=== PATIENT | male | born 1995 | race Caucasian/White ===

== ENCOUNTER 2016-07-05 18:49 | Emergency (ER) | payer SELFPAY ==
[~2016-07-05] VITALS: Ht 177.8 cm; Wt 72.7 kg
[~2016-07-05 18:49] MED LIST: IBUP-2067 PO; NO ROUTINE MEDS
--- OUTSIDE RECORDS SUMMARY | 2016-07-05 18:53 | XMS REPORT | Continuity of Care Document ---
Author Author [facility] Organization [facility] Address Unknown Phone Unavailable Support Name Relationship Address Phone JESIKA THEODORE MD Caregiver [address] [place] [address] Unavailable SAGRARIO CARO MD Caregiver [address] [address] Unavailable OSORIO WILSON Next Of Kin [address] [place] [address] Insurance Providers Guarantor Herbert Wilson Address [address] [place] [address] Email [email or web address] Payer Self Pay Subscriber's Name Herbert Wilson Relationship 18 Self Chief Complaint and Reason for Visit Chief Complaint Lower Extremity Injury Reason for Visit Acute ankle pain Problems Active Problems Medical Problem Onset Date Status Gastroenteritis Unknown Acute Norovirus Unknown Acute Puncture wound of left foot Unknown Acute left ankle sprain Unknown Acute right hand contusion Unknown Acute Past Problems Medical Problem Onset Date Acute ankle pain Unknown Congenital malrotation of intestine Unknown Gastroenteritis Unknown Nausea and vomiting Unknown Medications Current Home Medications Medication Dose Units Route Directions Days Qty Instructions Start Date Ibuprofen 600 Mg Tablet 1 Tab Oral Every 6-8 Hours Prn as needed for Pain 30 Tablet 10/14/15 No Routine Meds 10/14/15 Past Home Medications Medication Directions Ordered Status Hydrocodone Bit/Acetaminophen (Lortab Elixir) 480 Ml Solution, 480 Ml Oral as needed 08/06/12 Discontinued No Medications , 02/27/13 Discontinued None , 12/02/08 Discontinued Social History Social History Problem Response Recorded Date/Time Onset Date Status Chewing Tobacco Status No 03/15/2013 6:43pm Not Applicable Not Applicable Hx Substance Use No 10/14/2015 8:07pm Not Applicable Not Applicable Hx Alcohol Use No 10/14/2015 8:07pm Not Applicable Not Applicable Has the pt used tobacco in the last 12 months Yes 08/02/2012 7:03am Not Applicable Not Applicable Tobacco Usage none 12/15/2014 11:00am Not Applicable Not Applicable Query Response Start Date Stop Date Smoking Status Current every day smoker Hospital Discharge Instructions No hospital discharge instructions. Plan of Care Discharge Date 10/14/15 9:45pm Disposition 01 DISCHARGED HOME, SELF-CARE Condition at Discharge Stable Instructions/Education Provided Ankle Sprain How To Perform RICE (Rest, Ice, Compress, Elevate) Prescriptions See Medication Section Referrals SAGRARIO CARO MD Address: [address] [place] [address] DR [place], [place] [phone] Additional Instructions/Education Home to rest - No weight bearing till rechecked by PCP. Please follow up in 3-5 days for recheck to make sure no occult fracture. Please return to ER if worsening pain where toes become cool - blue - have numbness/tingling to rt foot/leg. Medication as ordered. Recommend taking ibuprofen every 6-8 hours with food for the next 3 days to help with swelling, discomfort - then as prescribed. Care Plan and Goals Physician Care Plan Problem: rt ankle pain acute Goal: Follow up with primary care provider Instructions: Take medications and follow care plan as discussed/written Functional Status No functional status results. Allergies, Adverse Reactions, Alerts Allergen Type Severity Reaction Status Last Updated No Known Drug Allergies Allergy Unknown Active 08/16/15 Immunizations Query Response on File Recorded Date/Time Hx Influenza Vaccination No 12/15/14 10:56am Hx Pneumococcal Vaccination No 12/15/14 10:56am Hx Tetanus, Diptheria, Pertussis Y 201212/15/14 10:56am Hx Influenza Vaccination No 12/15/14 10:56am Hx Tetanus, Diptheria, Pertussis Y 201212/15/14 10:56am Tdap Vaccine Hx UNKNOWN 10/14/15 8:07pm Vital Signs Acute Vital Signs Vital Response Date/Time Temperature (Fahrenheit) 98.2 deg F (96.8 - 99.1) 10/14/2015 8:07pm Temperature (Calculated Celsius) 36.88176 degrees C (36.0 - 37.3) 10/14/2015 8:07pm Pulse Rate (adult) 71 bpm (60 - 100) 10/14/2015 9:39pm Respiratory Rate 17 breaths/min (10 - 20) 10/14/2015 9:39pm O2 Sat by Pulse Oximetry 97 % (90 - 100) 10/14/2015 9:39pm Blood Pressure 110/66 mm Hg 10/14/2015 9:39pm Height (Feet) 5 feet 10/14/2015 8:07pm Height (Inches) 7.00 inches 10/14/2015 8:07pm Weight (Kilograms) 63.100 kg 10/14/2015 8:07pm Body Mass Index (BMI) 21.0 10/14/2015 8:07pm Results Laboratory Results Test Name Result Units Flags Reference Collection Date/Time Result Date/ Time Comments White Blood Count 8.1 T/MM3 4.5-11.0 08/19/2015 3:33pm 08/19/2015 3: 38pm Red Blood Count 5.39 M/MM3 4.50-5.90 08/19/2015 3:33pm 08/19/2015 3: 38pm Hemoglobin 17.1 GM/DL 13.5-17.5 08/19/2015 3:33pm 08/19/2015 3:38pm Hematocrit 50.2 % 41-53 08/19/2015 3:33pm 08/19/2015 3:38pm Mean Corpuscular Volume 93.1 UM3 80-100 08/19/2015 3:33pm 08/19/2015 3: 38pm Mean Corpuscular Hemoglobin 31.7 UUG 26-34 08/19/2015 3:33pm 2015 3:38pm Mean Corpuscular Hemoglobin Concent 34.1 GM/DL 31-37 08/19/2015 3:33pm 08/19/2015 3:38pm RDW Standard Deviation 43.5 FL 36.9-50.2 08/19/2015 3:33pm 08/19/2015 3 :38pm Platelet Count 235 T/MM3 130-400 08/19/2015 3:33pm 08/19/2015 3:38pm Mean Platelet Volume 9.6 UM3 9.4-12.4 08/19/2015 3:33pm 08/19/2015 3: 38pm Neutrophils (%) (Auto) 52.2 % 33-66 08/19/2015 3:33pm 08/19/2015 3: 38pm Lymphocytes (%) (Auto) 35.7 % 23-45 08/19/2015 3:33pm 08/19/2015 3: 38pm Monocytes (%) (Auto) 5.8 % 0-9.0 08/19/2015 3:33pm 08/19/2015 3:38pm Eosinophils (%) (Auto) 5.8 % H 0-4 08/19/2015 3:33pm 08/19/2015 3:38pm Basophils (%) (Auto) 0.4 % 0-2 08/19/2015 3:33pm 08/19/2015 3:38pm Immature Granulocyte % (Auto) 0.1 % 0.0-0.5 08/19/2015 3:33pm 2015 3:38pm Absolute Neutrophils (auto) 4.3 T/MM3 1.8-7.7 08/19/2015 3:33pm 2015 3:38pm Absolute Lymphocytes (auto) 2.9 T/MM3 1-4.8 08/19/2015 3:33pm 2015 3:38pm Absolute Monocytes (auto) 0.5 T/MM3 0-0.8 08/19/2015 3:33pm 08/19/2015 3:38pm Absolute Eosinophils (auto) 0.5 T/MM3 0-0.5 08/19/2015 3:33pm 2015 3:38pm Absolute Basophils (auto) 0.0 T/MM3 0-0.2 08/19/2015 3:33pm 08/19/2015 3:38pm Absolute Immature Granulocyte (auto 0.01 T/MM3 0.00-0.03 08/19/2015 3: 33pm 08/19/2015 3:38pm Icterus Index < 2 0-7 08/19/2015 3:33pm 08/19/2015 3:48pm Chemistry Specimen Hemolysis < 15 0-25 08/19/2015 3:33pm 08/19/2015 3 :48pm 0-25: Specimen Exhibited No Hemolysis. Turbidity < 20 0-20 08/19/2015 3:33pm 08/19/2015 3:48pm Sodium Level 140 MEQ/L 134-144 08/19/2015 3:33pm 08/19/2015 3:48pm Potassium Level 4.1 MEQ/L 3.6-5 08/19/2015 3:33pm 08/19/2015 3:48pm Chloride Level 106 MEQ/L 98-107 08/19/2015 3:33pm 08/19/2015 3:48pm Carbon Dioxide Level 25 MEQ/L 22-30 08/19/2015 3:33pm 08/19/2015 3: 48pm Anion Gap 9 MEQ/L 5-15 08/19/2015 3:33pm 08/19/2015 3:48pm Blood Urea Nitrogen 8.0 MG/DL L 9-20 08/19/2015 3:33pm 08/19/2015 3: 48pm Creatinine 0.8 MG/DL 0.8-1.5 08/19/2015 3:33pm 08/19/2015 3:48pm BUN/Creatinine Ratio 10 RATIO 6-26 08/19/2015 3:3308/19/2015 3:48pm Glomerular Filtration Rate Calc 126 08/19/2015 3:33pm 08/19/2015 3: 48pm Glucose Level 90 MG/DL 75-110 08/19/2015 3:33pm 08/19/2015 3:48pm Calculated Osmolality 267 MOSM/KG 261-280 08/19/2015 3:08/19/2015 3:48pm Calcium Level 9.6 MG/DL 8.4-10.2 08/19/2015 3:3308/19/2015 3:48pm Total Bilirubin 0.40 MG/DL 0.20-1.30 08/19/2015 3:3308/19/2015 3: 48pm Alkaline Phosphatase 67 U/L L 70-260 08/19/2015 3:33pm 08/19/2015 3: 48pm Total Protein 7.0 G/DL 6.3-8.2 08/19/2015 3:33pm 08/19/2015 3:48pm Albumin 4.4 G/DL 3.5-5.0 08/19/2015 3:08/19/2015 3:48pm Globulin 2.6 G/DL 2.4-3.6 08/19/2015 3:08/19/2015 3:48pm Albumin/Globulin Ratio 1.7 RATIO 1.1-2.2 08/19/2015 3:pm 08/19/2015 3 :48pm Aspartate Amino Transf (AST/SGOT) 15 U/L L 17-59 08/19/2015 3:pm 08/18 3:48pm Alanine Aminotransferase (ALT/SGPT) 10 U/L L 21-72 08/19/2015 3:33pm 3:48pm C-Reactive Protein < 5.0 MG/L 0-9 08/19/2015 3:33pm 08/19/2015 3:48pm Lipase 24 U/L 23-300 08/19/2015 3:33pm 08/19/2015 3:48pm Urine Collection Type VOIDED-NOT CC-MIDSTR 08/19/2015 4:16pm 2015 4:22pm Urine Color YELLOW YELLOW 08/19/2015 4:16pm 08/19/2015 4:22pm Urine Turbidity CLEAR CLEAR 08/19/2015 4:16pm 08/19/2015 4:22pm Urine Specific [place] 1.020 1.015-1.025 08/19/2015 4:16pm 2015 4:22pm Urine pH 8.5 H 5.0-8.0 08/19/2015 4:16pm 08/19/2015 4:22pm Urine Leukocyte Esterase NEGATIVE NEGATIVE 08/19/2015 4:16pm 2015 4:22pm Urine Nitrite NEGATIVE NEGATIVE 08/19/2015 4:16pm 08/19/2015 4:22pm Urine Protein NEGATIVE NEGATIVE 08/19/2015 4:16pm 08/19/2015 4:22pm Urine Glucose (UA) NEGATIVE NEGATIVE 08/19/2015 4:16pm 08/19/2015 4: 22pm Urine Ketones NEGATIVE NEGATIVE 08/19/2015 4:16pm 08/19/2015 4:22pm Urine Urobilinogen 0.2 EU/DL NORMAL 08/19/2015 4:16pm 08/19/2015 4: 22pm Urine Bilirubin NEGATIVE NEGATIVE 08/19/2015 4:16pm 08/19/2015 4: 22pm Urine Blood NEGATIVE NEGATIVE 08/19/2015 4:16pm 08/19/2015 4:22pm Urinalysis Comment MICROSCOPIC NOT IND. 08/19/2015 4:16pm 2015 4:22pm Procedures Procedure Status Date Provider(s) HYDRATE IV INFUSION ADD-ON Completed 08/16/15 JOHN AWAN MD THER/PROPH/DIAG INJ IV PUSH Completed 08/16/15 JOHN AWAN MD TX/PRO/DX INJ NEW DRUG ADDON Completed 08/16/15 JOHN AWAN MD TX/PRO/DX INJ NEW DRUG ADDON Completed 08/16/15 JOHN AWAN MD TX/PRO/DX INJ NEW DRUG ADDON Completed 08/16/15 JOHN AWAN MD TX/PRO/DX INJ NEW DRUG ADDON Completed 08/16/15 JOHN AWAN MD THER/PROPH/DIAG INJ IV PUSH Completed 08/19/15 TX/PRO/DX INJ NEW DRUG ADDON Completed 08/19/15 TX/PRO/DX INJ NEW DRUG ADDON Completed 08/19/15 TX/PRO/DX INJ NEW DRUG ADDON Completed 08/19/15 TX/PRO/DX INJ SAME DRUG REFERRAL MANAGEMENT LIAISON Completed 08/19/15 Encounters Encounter Location Arrival/Admit Date Discharge/Depart Date Attending Provider Departed Emergency Room [facility] 10/14/15 7:46pm 10/14/15 9: 45pm JESIKA THEODORE MD Departed Emergency Room [facility] 08/19/15 2:49pm 08/19/15 5: 40pm MENDY GUTIERREZ MD Departed Emergency Room [facility] 08/16/15 7:02am 08/16/15 11: 52am JOHN AWAN MD Recent Diagnosis
--- OUTSIDE RECORDS SUMMARY | 2016-07-05 18:53 | XMS REPORT | Continuity of Care Document ---
Author Author [facility] Organization [facility] Address Unknown Phone Unavailable Allergies Active Description Code Type Severity Reaction Onset Reported/Identified Relationship to Patient Clinical Status Yes No Known Medication Allergies NKMA N/A N/A 01/30/2014 Medications Problems Date Dx Coded Attending Type Code Diagnosis Diagnosed By 04/07/2016 OMAR LYNCH [id number] Nicotine dependence, cigarettes, uncomplicated 04/07/2016 OMAR LYNCH H6692 Otitis media, unspecified, left ear 04/07/2016 OMAR LYNCH J029 Acute pharyngitis, unspecified 04/07/2016 OMAR LYNCH R05 Cough Procedures Results Encounters ACCT No. Visit Date/Time Discharge Status Pt. Type Provider Facility Loc./Unit Complaint [id number] 05/08/2013 18:13:00 05/08/2013 23 :59:59 CLS Outpatient
--- OUTSIDE RECORDS SUMMARY | 2016-07-05 18:53 | XMS REPORT | Referral Summary ---
Author Organization Unknown Address Unknown Phone Unavailable Care Team Providers Care Tempering Oven Operator Name Role Phone Hayley Jaramillo Primary Care Physician [phone] Encounter VC Date(s): 04/18/14 - 04/18/14 [facility], [address] [place] [address] Discharge Diagnosis: Acute bronchitis Discharge Disposition: Home or Self Care Attending Physician: Dago Garcia MD Admitting Physician: Dago Garcia MD Referring Physician: Lupillo Jaramillo MD Vital Signs Most recent to 1 oldest [Reference Range]: Temperature Tympanic 37.4 degC (04/18/14 7:31 PM) Peripheral Pulse 93 bpm Rate [55-90 bpm] *HI* (04/18/14 7:31 PM) Blood Pressure 114/80 mmHg [90-138/45-84 mmHg] (04/18/14 7:31 PM) Most recent to 1 oldest [Reference Range]: SpO2 99 % (04/18/14 7:31 PM) Problem List No Known Problems Allergies, Adverse Reactions, Alerts No Known Medication Allergies Medications Mucinex DM 1 tabs, Oral, q12hr, 0 Refill(s) Start Date: 01/30/14 Status: Ordered Zithromax Z-Ismael 250 mg oral tablet 1 packets, Oral, Daily, as directed on package labeling, X 5 days, # 6 tabs, 0 Refill(s), Pharmacy: [facility] [id number], 1 packets Oral Daily,x5 days, Instr:as directed on package labeling Special Instructions: as directed on package labeling Start Date: 04/18/14 Stop Date: 04/23/14 Status: Ordered Results No data available for this section Immunizations No data available for this section Procedures No data available for this section Social History Social History Type Response Smoking Status Current every day smoker; Tobacco use per day: Pack Assessment and Plan Extracted from: Title: Office Visit Note Author: Dago Garcia MD Date: 04/18/14 Assessment/Plan Acute bronchitis The overall history and exam is consistent with bronchitis. I would recommend netipot sinus 2 to 3 x a day if you are having trouble with nasal drainage. Mucinex is ok for the cough. If you are not improving by next week call us. If you are experiencing any concerning symptoms call or go to the ER. Orders: azithromycin, 1 packets, Oral, Daily, as directed on package labeling , X 5 days, # 6 tabs, 0 Refill(s), Pharmacy: [id number], 1 packets Oral Daily,x5 days,Instr:as directed on package labeling
--- OUTSIDE RECORDS SUMMARY | 2016-07-05 18:53 | XMS REPORT | Continuity of Care Document ---
Author Author Greg Harvey DO Ambulatory Address [address] [place] [address] [place] [address] Phone Payers Payer name Insurance type Covered alliance party ID Authorization(s) Unknown Problems Condition Effective Dates (start - stop) Clinical Status Noninfectious Gastroenteritis - *Acute Abdominal pain, periumbilic - *Acute Family History Family Member Diagnosis Age At Onset Status Unknown Social History Social History Element Description Quantity Unknown Allergies, Adverse Reactions, Alerts Substance Reaction Severity Status Unknown Medications Medication Instructions Dosage Effective Dates (start - stop) Status promethazine 25 mg tablet take 1 tablet (25MG) by oral route every 6 hours as needed 25 MG - Active Immunizations Vaccine Date Status Comments Unknown Results Test Name Date and Time Measure Units Reference Range Abnormal Flag Comments Unknown Vital Signs Date / Time: Height Weight Pulse Rate Blood Pressure Temperature /18:21:00 140.00 lbs 5 /min 104/66 mm[Hg] 98.3 F Procedures Procedure Date Unknown Encounters Encounter Location Date Patient Visit [facility] Care Patient Visit [facility] Care Advance Directives Directive Effective Date Unknown
--- OUTSIDE RECORDS SUMMARY | 2016-07-05 18:53 | XMS REPORT | Referral Summary ---
Author Organization Unknown Address Unknown Phone Unavailable Care Team Providers Care Catapult And Arresting Gear Officer Name Role Phone Hayley Jaramillo Primary Care Physician [phone] Encounter VC Date(s): 05/25/14 - 05/25/14 [facility]ellanos, [address] [place] [address] Discharge Diagnosis: Dehydration, mild Discharge Diagnosis: Vomiting Discharge Diagnosis: Influenza Discharge Diagnosis: Acute bronchitis Discharge Disposition: Home or Self Care Attending Physician: Phill Harmon MD Admitting Physician: Phill Harmon MD Referring Physician: Lupillo Jaramillo MD Vital Signs Most recent to 1 oldest [Reference Range]: Temperature Tympanic 37.7 degC (05/25/14 5:36 PM) Apical Heart Rate 114 bpm [55-90 bpm] *HI* (05/25/14 5:36 PM) Blood Pressure 118/72 mmHg [90-138/45-84 mmHg] (05/25/14 5:36 PM) Problem List Condition Effective Dates Status Health Status Informant Acute Active bronchitis(Confirmed ) Influenza(Confirmed) Active Dehydration, Active mild(Confirmed) Vomiting(Confirmed) Active Allergies, Adverse Reactions, Alerts No Known Medication Allergies Medications Mucinex DM 1 tabs, Oral, q12hr, 0 Refill(s) Start Date: 01/30/14 Status: Ordered predniSONE 20 mg oral tablet 1 tabs, Oral, Daily, X 5 days, # 5 tabs, 0 Refill(s), Pharmacy: [facility] [id number], 1 tabs Oral Daily,x5 days Start Date: 05/24/14 Stop Date: 05/29/14 Status: Ordered Tamiflu 75 mg oral capsule 1 caps, Oral, BID, X 5 days, # 10 caps, 0 Refill(s), Pharmacy: [facility] [id number], 1 caps Oral BID,x5 days Start Date: 05/25/14 Stop Date: 05/30/14 Status: Ordered Zithromax Z-Ismael 250 mg oral tablet 1 packets, Oral, Daily, as directed on package labeling, X 5 days, # 6 tabs, 0 Refill(s), Pharmacy: [facility] [id number], 1 packets Oral Daily,x5 days, Instr:as directed on package labeling Special Instructions: as directed on package labeling Start Date: 05/24/14 Stop Date: 05/29/14 Status: Ordered Zofran 4 mg oral tablet 1 tabs, Oral, q6hr, Nausea or Vomiting | as needed for nausea/vomiting, # 12 tabs, 0 Refill(s), Pharmacy: [facility] [id number], 1 tabs Oral q6hr,PRN: Nausea or Vomiting | as needed for nausea/vomiting Start Date: 05/25/14 Stop Date: 05/30/14 Status: Ordered Results No data available for this section Immunizations No data available for this section Procedures No data available for this section Social History Social History Type Response Smoking Status Current every day smoker; Tobacco use per day: Pack Assessment and Plan Extracted from: Title: Ambulatory Patient Education Author: Phill Harmon MD Date: 05/25 Family Medicine Influenza, Adult Influenza ("the flu") is a viral infection of the respiratory tract. It occurs more often in winter months because people spend more time in close contact with one another. Influenza can make you feel very sick. Influenza easily spreads from person to person (contagious ). CAUSES Influenza is caused by a virus that infects the respiratory tract. You can catch the virus by breathing in droplets from an infected person's cough or sneeze. You can also catch the virus by touching something that was recently contaminated with the virus and then touching your mouth, nose, or eyes. SYMPTOMS Symptoms typically last 4 to 10 days and may include: Fever. Chills. Headache, body aches, and muscle aches. Sore throat. Chest discomfort and cough. Poor appetite. Weakness or feeling tired. Dizziness. Nausea or vomiting. DIAGNOSIS Diagnosis of influenza is often made based on your history and a physical exam. A nose or throat swab test can be done to confirm the diagnosis. RISKS AND COMPLICATIONS You may be at risk for a more severe case of influenza if you smoke cigarettes, have diabetes, have chronic heart disease (such as heart failure) or lung disease (such as asthma), or if you have a weakened immune system. Elderly people and women are also at risk for more serious infections. The most common complication of influenza is a lung infection (pneumonia ). Sometimes, this complication can require emergency medical care and may be life- threatening. PREVENTION An annual influenza vaccination (flu shot) is the best way to avoid getting influenza. An annual flu shot is now routinely recommended for all adults in the [place] TREATMENT In mild cases, influenza goes away on its own. Treatment is directed at relieving symptoms. For more severe cases, your caregiver may prescribe antiviral medicines to shorten the sickness. Antibiotic medicines are not effective, because the infection is caused by a virus, not by bacteria. HOME CARE INSTRUCTIONS Only take [id number] or prescription medicines for pain, discomfort, or fever as directed by your caregiver. Use a cool mist humidifier to make breathing easier. Get plenty of rest until your temperature returns to normal. This usually takes 3 to 4 days. Drink enough fluids to keep your urine clear or pale yellow. Cover your mouth and nose when coughing or sneezing, and wash your hands well to avoid spreading the virus. Stay home from work or school until your fever has been gone for at least 1 full day. SEEK MEDICAL CARE IF: You have chest pain or a deep cough that worsens or produces more mucus. You have nausea, vomiting, or diarrhea. SEEK IMMEDIATE MEDICAL CARE IF: You have difficulty breathing, shortness of breath, or your skin or nails turn bluish. You have severe neck pain or stiffness. You have a severe headache, facial pain, or earache. You have a worsening or recurring fever. You have nausea or vomiting that cannot be controlled. MAKE SURE YOU: Understand these instructions. Will watch your condition. Will get help right away if you are not doing well or get worse. Document Released: 03/12/2001 Document Revised: 09/13/2012 Document Reviewed: [employer] Patient Information 2014 [employer]. No follow up information was provided. Extracted from: Title: bronchitis, vomiting Author: Phill Harmon MD Date: 05/25/14 Impression and Plan Diagnosis Vomiting (ICD9 787.03, Discharge, Medical). Influenza (ICD9 487.1, Discharge, Medical). Dehydration, mild (ICD9 276.51, Discharge, Medical). Acute bronchitis (ICD9 466.0, Discharge, Medical). Plan: Take the Tamiflu as directed. Use the Zofran as needed for vomiting. , You should fill the Azithromycin prescription and take that (from Dr. Jaramillo) as well. Rest at home. Followup as needed.. Orders Orders (Selected) Outpatient Orders Ordered Office Visit Level 4 Est 25421: Completed Influenza POC: Prescriptions Prescribed Tamiflu 75 mg oral capsule: 1 caps, Oral, BID, 10 caps Zofran 4 mg oral tablet: 1 tabs, Oral, q6hr, 12 tabs, PRN: Nausea or Vomiting | as needed for nausea/vomiting. Dx/Order Association Plan: Diagnosis: Acute bronchitis Comment: Ordered: Office Visit Level 4 Est 64583; 05/25/14 21:32:00 SUPPLEMENTAL MANAGER, Influenza | Dehydration, mild | Acute bronchitis | Vomiting Diagnosis: Dehydration, mild Comment: Ordered: Office Visit Level 4 Est 41003; 05/25/14 21:32:00 SUPPLEMENTAL MANAGER, Influenza | Dehydration, mild | Acute bronchitis | Vomiting Diagnosis: Influenza Comment: Ordered: Office Visit Level 4 Est 76707; 05/25/14 21:32:00 SUPPLEMENTAL MANAGER, Influenza | Dehydration, mild | Acute bronchitis | Vomiting Diagnosis: Vomiting Comment: Ordered: Office Visit Level 4 Est [id number]; 05/25/14 21:32:00 SUPPLEMENTAL MANAGER, Influenza | Dehydration, mild | Acute bronchitis | Vomiting Additional Orders: Comment: Ordered: Tamiflu 75 mg oral capsule,1 caps, Oral, BID, X 5 days, # 10 caps, 0 Refill(s), Pharmacy: [facility] [id number], 1 caps Oral BID,x5 days Ordered: Zofran 4 mg oral tablet,1 tabs, Oral, q6hr, Nausea or Vomiting | as needed for nausea/vomiting, # 12 tabs, 0 Refill(s), Pharmacy: [facility] [id number], 1 tabs Oral q6hr,PRN:Nausea or Vomiting | as needed for nausea/vomiting End of Orders .
--- OUTSIDE RECORDS SUMMARY | 2016-07-05 18:53 | XMS REPORT ---
Author Author GENERATED, SYSTEM Organization Unknown Address Unknown Phone Unavailable Care Team Providers Care Family Centered Specialist Name Role Phone PP Unavailable Reason For Visit Chief Complaint ACUTE PHARYNGITIS Social History Functional Status Vital Signs Results DX Radiology from 04/03/2016 1:38 PMCHEST 2 VIEWS History: cough, fever. Technique: 2 VIEW CHEST Priors: Findings: The heart size and pulmonary vasculature within normal limits. No consolidating infiltrates are identified. No significant pleural effusion or pneumothorax is seen. Impression: No acute abnormality. Electronically signed by: Liza Mendenhall MD Dictated: 04/03/2016 15:21 Problems Encounter Diagnosis No relevant problems exist. Encounters Encounter Diagnosis No relevant problems exist. Plan of Care Procedures No relevant procedures performed. Immunizations No immunizations administered or ordered. Hospital Course Hospital Discharge Instructions Allergies, Adverse Reactions, Alerts * Latex Allergy has not been assessed. * IV Contrast Allergy has not been assessed. Medication Medication reconciliation has not been performed.
--- OUTSIDE RECORDS SUMMARY | 2016-07-05 18:53 | XMS REPORT | Referral Summary ---
Author Author [facility], [facility] Care Organization [facility] Address Unknown Phone Unavailable Care Team Providers Care Bartender Manager Name Role Phone Hayley Jaramillo Primary Care Physician [phone] Encounter Date(s): 11/26/15 - 11/26/15 [facility] [address] [place] [address]- Discharge Diagnosis: Nausea Discharge Diagnosis: Bronchitis Discharge Diagnosis: BPV (benign positional vertigo) Discharge Disposition: 01-Home or Self Care Attending Physician: Juan Pablo Reddy PA-C Admitting Physician: Juan Pablo Reddy PA-C Vital Signs Most recent to 1 oldest [Reference Range]: Temperature Tympanic 36.7 degC [36.6-38.1 degC] (11/26/15 6:52 PM) Peripheral Pulse 64 bpm Rate [60-100 bpm] (11/26/15 6:52 PM) Blood Pressure 114/70 mmHg [90-140/60-90 mmHg] (11/26/15 6:52 PM) SpO2 99 % (11/26/15 6:52 PM) Problem List Condition Effective Dates Status Health Status Informant Acute Active bronchitis(Confirmed ) Influenza(Confirmed) Active Dehydration, Active mild(Confirmed) Vomiting(Confirmed) Active Allergies, Adverse Reactions, Alerts No Known Medication Allergies Medications albuterol CFC free 90 mcg/inh inhalation aerosol 2 puffs, Inhalation, q4hr, as needed for wheezing, # 18 g, 0 Refill(s), Pharmacy : [facility] [id number] Start Date: 11/26/15 Status: Ordered Laisha-Denver Plus Cold and Sinus tabs, Oral, q4hr, 0 Refill(s) Start Date: 11/26/15 Status: Ordered meclizine 25 mg oral tablet 25 mg 1 tabs, Oral, TID, as needed for dizziness, X 10 days, # 30 tabs, 0 Refill (s), Pharmacy: [id number], 1 tabs Oral TID,x10 days,PRN:as needed for dizziness Start Date: 11/26/15 Stop Date: 12/06/15 Status: Ordered Zofran 4 mg oral tablet 4 mg 1 tabs, Oral, q8hr, # 12 tabs, 0 Refill(s), Pharmacy: [id number], 1 tabs Oral q8hr,x4 days Start Date: 11/26/15 Stop Date: 11/30/15 Status: Ordered Results No data available for this section Immunizations No data available for this section Procedures Procedure Date Related Diagnosis Body Site Bone placement 2001 Social History Social History Type Response Smoking Status Current every day smoker; Tobacco use per day: Pack Assessment and Plan No data available for this section
--- OUTSIDE RECORDS SUMMARY | 2016-07-05 18:53 | XMS REPORT | Referral Summary ---
Author Author [facility] Organization [facility] Address Unknown Phone Unavailable Care Team Providers Care Quality And Reliability Engineer Name Role Phone Hayley Jaramillo Primary Care Physician [phone] Encounter Date(s): 10/18/15 - 10/18/15 [facility] [address] [place] [address] Discharge Disposition: 01-Home or Self Care Attending Physician: Lupillo Jaramillo MD Admitting Physician: Lupillo Jaramillo MD Vital Signs Most recent to 1 oldest [Reference Range]: Blood Pressure 110/70 mmHg [90-140/60-90 mmHg] (10/18/15 9:32 AM) Problem List Condition Effective Dates Status Health Status Informant Acute Active bronchitis(Confirmed ) Influenza(Confirmed) Active Dehydration, Active mild(Confirmed) Vomiting(Confirmed) Active Allergies, Adverse Reactions, Alerts No Known Medication Allergies Medications No Known Medications Results No data available for this section Immunizations No data available for this section Procedures Procedure Date Related Diagnosis Body Site Bone placement 2001 Social History Social History Type Response Smoking Status Current every day smoker; Tobacco use per day: Pack Assessment and Plan No data available for this section
--- OUTSIDE RECORDS SUMMARY | 2016-07-05 18:53 | XMS REPORT | Continuity of Care Document ---
Author Author [facility] Organization [facility] Address Unknown Phone Unavailable Support Name Relationship Address Phone SAGRARIO CARO MD Caregiver [address] [place] [address] Unavailable MENDY GUTIERREZ MD Caregiver [address] [place] [address] Unavailable OSORIO WILSON Next Of Kin [address] [place] [address] Insurance Providers Guarantor Herbert Wilson Address [address] [place] [address] Email [email or web address] Payer Self Pay Subscriber's Name Herbert Wilson Relationship 18 Self Advance Directives Directive Response Recorded Date/Time Advanced Directives Type None 08/19/15 2:55pm Chief Complaint and Reason for Visit Chief Complaint Abdominal Pain Reason for Visit Gastroenteritis Problems Active Problems Medical Problem Onset Date Status Gastroenteritis Unknown Acute Norovirus Unknown Acute Puncture wound of left foot Unknown Acute left ankle sprain Unknown Acute right hand contusion Unknown Acute Past Problems Medical Problem Onset Date Congenital malrotation of intestine Unknown Gastroenteritis Unknown Nausea and vomiting Unknown Medications Current Home Medications Medication Dose Units Route Directions Days Qty Instructions Start Date Hydrocodone/Acetaminophen (Coolspring 5-325 Tablet) 1 Each Tablet 1-2 Tab Oral Every 6 Hours as needed for Pain 20 Tablet 08/16/15 Hydrocodone/Acetaminophen (Coolspring 5-325 Tablet) 1 Each Tablet 1-2 Tab Oral Every 6 Hours as needed for Pain 10 Tablet 08/19/15 Promethazine Hcl 25 Mg Tablet 1 Tab Oral Every 6 Hours as needed for Nausea &/Or Vomiting 20 Tablet 08/19/15 Past Home Medications Medication Directions Ordered Status Hydrocodone Bit/Acetaminophen (Lortab Elixir) 480 Ml Solution, 480 Ml Oral as needed 08/06/12 Discontinued No Medications , 02/27/13 Discontinued None , 12/02/08 Discontinued Social History Social History Problem Response Recorded Date/Time Onset Date Status Chewing Tobacco Status No 03/15/2013 6:43pm Not Applicable Not Applicable Hx Substance Use No 08/19/2015 2:55pm Not Applicable Not Applicable Hx Alcohol Use No 08/19/2015 2:55pm Not Applicable Not Applicable Has the pt used tobacco in the last 12 months Yes 08/02/2012 7:03am Not Applicable Not Applicable Tobacco Usage none 12/15/2014 11:00am Not Applicable Not Applicable Query Response Start Date Stop Date Smoking Status Current every day smoker Hospital Discharge Instructions No hospital discharge instructions. Plan of Care Discharge Date 08/19/15 5:40pm Disposition 01 DISCHARGED HOME, SELF-CARE Condition at Discharge Stable Instructions/Education Provided Gastroenteritis Diet Forms Provided Return to Work/School Permit Prescriptions See Medication Section Referrals SAGRARIO CARO MD Address: [address] [place] [address] [place] [phone] Note: Follow-up Wednesday if not improved Additional Instructions/Education May use Benadryl for insomnia May use Colace 100 mg twice a day while on the norco for constipation Would recommend Ani lax daily for the next 10 days Care Plan and Goals Physician Care Plan Problem: Gastroenteritis Goal: Follow up with primary care provider [...] Hx Tetanus, Diptheria, Pertussis Y 201212/15/14 10:56am Vital Signs Acute Vital Signs Vital Response Date/Time Temperature (Fahrenheit) 98.2 deg F (96.8 - 99.1) 08/19/2015 5:40pm Temperature (Calculated Celsius) 36.68853 degrees C (36.0 - 37.3) 08/19/2015 5:40pm Pulse Rate (adult) 68 bpm (60 - 100) 08/19/2015 5:40pm Respiratory Rate 15 breaths/min (10 - 20) 08/19/2015 5:40pm O2 Sat by Pulse Oximetry 99 % (90 - 100) 08/19/2015 5:40pm Blood Pressure 106/65 mm Hg 08/19/2015 5:40pm Height (Feet) 5 feet 08/19/2015 2:55pm Height (Inches) 10.00 inches 08/19/2015 2:55pm Weight (Kilograms) 60.400 kg 08/19/2015 2:55pm Body Mass Index (BMI) 19.0 08/19/2015 2:55pm Results Laboratory Results Test Name Result Units [...] 3: 38pm Neutrophils (%) (Auto) 52.2 % -66 08/19/2015 3:33pm 08/19/2015 3: 38pm Lymphocytes (%) [...] Chemistry Specimen Hemolysis < 15 0-25 08/19/2015 3:pm 08/19/2015 3 :48pm 0-25: Specimen Exhibited No [...] 3:48pm Blood Urea Nitrogen 8.0 MG/DL L 9-08/19/2015 3:33pm 08/19/2015 3: 48pm Creatinine 0.8 MG/DL 0.8-1.5 08/19/2015 3:33pm 08/19/2015 3:48pm BUN/Creatinine Ratio 10 RATIO 6-08/19/2015 3:33pm 08/19/2015 3:48pm Glomerular Filtration Rate Calc 126 08/19/2015 3:33pm 08/19/2015 3: 48pm Glucose Level 90 MG/DL 75-110 08/19/2015 3:33pm 08/19/2015 3:48pm Calculated Osmolality 267 MOSM/KG 261-280 08/19/2015 3:33pm 08/19/2015 3:48pm Calcium Level 9.6 MG/DL 8.4-10.2 08/19/2015 3:3308/19/2015 3:48pm Total Bilirubin 0.40 MG/DL 0.20-1.30 08/19/2015 3:33pm 08/19/2015 3: 48pm Alkaline Phosphatase 67 U/L L 70-260 08/19/2015 3:33pm 08/19/2015 3: 48pm Total Protein 7.0 G/DL 6.3-8.2 08/19/2015 3:33pm 08/19/2015 3:48pm Albumin 4.4 G/DL 3.5-5.0 08/19/2015 3:33pm 08/19/2015 3:48pm Globulin 2.6 G/DL 2.4-3.6 08/19/2015 3:33pm 08/19/2015 3:48pm Albumin/Globulin Ratio 1.7 RATIO 1.1-2.2 08/19/2015 3:33pm 08/19/2015 3 :48pm Aspartate Amino Transf (AST/SGOT) 15 U/L L 17-59 08/19/2015 3:33pm 08/18 3:48pm Alanine Aminotransferase (ALT/SGPT) 10 U/L L 21-72 08/19/2015 3:33pm 3:48pm C-Reactive Protein < 5.0 MG/L 0-9 08/19/2015 3:33pm 08/19/2015 3:48pm Lipase 24 U/L 23-300 08/19/2015 3:33pm 08/19/2015 3:48pm Urine Collection Type VOIDED-NOT CC-MIDSTR 08/19/2015 4:16pm 2015 4:22pm Urine Color YELLOW YELLOW 08/19/2015 4:16pm 08/19/2015 4:22pm Urine Turbidity CLEAR CLEAR 08/19/2015 4:16pm 08/19/2015 4:22pm Urine Specific Jasper 1.020 1.015-1.025 08/19/2015 4:16pm 2015 4:22pm Urine [...] MICROSCOPIC NOT IND. 08/19/2015 4:16pm 2015 4:22pm Name: HERBERT WILSON Unit #: [id number] : 1995 Sex: M Admit Date: Loc / Svc: ED Discharge Date: DIAGNOSTIC IMAGING REPORT Report #: [id number] [facility] [place] Indication: ITS.REASON: severe diffuse abdominal pain rule out SBO PROCEDURE: KUB W/UPRIGHT: Encounter: Initial Comparison: CT abdomen pelvis 08/16/2015 Findings: Flat and upright abdominal radiographs demonstrates moderate stool in the left colon. There are a few mildly prominent loops of small bowel seen centrally. Findings could reflect an ileus pattern. Early obstruction would be difficult to entirely exclude and follow-up is warranted. Impression: Early ileus pattern or early small bowel obstruction. Radiographic follow-up recommended. . Procedures Procedure Status Date Provider(s) HYDRATE IV INFUSION ADD-ON Completed 08/16/15 JOHN AWAN MD THER/PROPH/DIAG INJ IV PUSH Completed 08/16/15 JOHN AWAN MD TX/PRO/DX INJ NEW DRUG ADDON Completed 08/16/15 JOHN AWAN MD TX/PRO/DX INJ NEW DRUG ADDON Completed 08/16/15 JOHN AWAN MD TX/PRO/DX INJ NEW DRUG ADDON Completed 08/16/15 JOHN AWAN MD TX/PRO/DX INJ NEW DRUG ADDON Completed 08/16/15 JOHN AWAN MD Encounters Encounter Location Arrival/Admit Date Discharge/Depart Date Attending Provider Departed Emergency Room [facility] 08/19/15 2:49pm 08/19/15 5: 40pm MENDY GUTIERREZ MD Departed Emergency Room [facility] 08/16/15 7:02am 08/16/15 11: 52am JOHN AWAN MD Recent Diagnosis
--- OUTSIDE RECORDS SUMMARY | 2016-07-05 18:53 | XMS REPORT | Referral Summary ---
Author Organization Unknown Address Unknown Phone Unavailable Care Team Providers Care Supervisor Char House Name Role Phone Hayley Jaramillo Primary Care Physician [phone] Encounter VC Date(s): 07/21/14 - 07/21/14 [facility] [address] [place] [id number] Discharge Diagnosis: Tobacco use Discharge Diagnosis: Acute URI Discharge Diagnosis: Seasonal allergies Discharge Disposition: Home or Self Care Attending Physician: Kaya Bland MD Admitting Physician: Kaya Bland MD Vital Signs Most recent to 1 oldest [Reference Range]: Temperature Tympanic 37.5 degC (07/21/14 11:38 AM) Peripheral Pulse 88 bpm Rate [55-90 bpm] (07/21/14 11:38 AM) Blood Pressure 108/60 mmHg [90-138/45-84 mmHg] (07/21/14 11:38 AM) Most recent to 1 oldest [Reference Range]: SpO2 95 % (07/21/14 11:38 AM) Problem List Condition Effective Dates Status Health Status Informant Acute Active bronchitis(Confirmed ) Influenza(Confirmed) Active Dehydration, Active mild(Confirmed) Vomiting(Confirmed) Active Allergies, Adverse Reactions, Alerts No Known Medication Allergies Medications Mucinex DM 1 tabs, Oral, q12hr, 0 Refill(s) Start Date: 01/30/14 Status: Ordered Results No data available for this section Immunizations No data available for this section Procedures Procedure Date Related Diagnosis Body Site Bone placement 2001 Social History Social History Type Response Smoking Status Current every day smoker; Tobacco use per day: Pack Assessment and Plan Extracted from: Title: Ambulatory Patient Education Author: Kaya Bland MD Date: 07/21/14 Family Medicine Upper Respiratory Infection, Adult An upper respiratory infection (URI) is also known as the common cold. It is often caused by a type of germ (virus ). Colds are easily spread (contagious ). You can pass it to others by kissing, coughing, sneezing, or drinking out of the same glass. Usually, you get better in 1 or 2 weeks. HOME CARE Only take medicine as told by your doctor. Use a warm mist humidifier or breathe in steam from a hot shower. Drink enough water and fluids to keep your pee (urine ) clear or pale yellow. Get plenty of rest. Return to work when your temperature is back to normal or as told by your doctor. You may use a face mask and wash your hands to stop your cold from spreading. GET HELP RIGHT AWAY IF: After the first few days, you feel you are getting worse. You have questions about your medicine. You have chills, shortness of breath, or brown or red spit (mucus ). You have yellow or brown snot (nasal discharge ) or pain in the face, especially when you bend forward. You have a fever, puffy (swollen ) neck, pain when you swallow, or white spots in the back of your throat. You have a bad headache, ear pain, sinus pain, or chest pain. You have a high-pitched whistling sound when you breathe in and out ( wheezing ). You have a lasting cough or cough up blood. You have sore muscles or a stiff neck. MAKE SURE YOU: Understand these instructions. Will watch your condition. Will get help right away if you are not doing well or get worse. Document Released: 08/31/2008 Document Revised: 06/06/2012 Document Reviewed: [facility] Patient Information 2014 [employer] [facility]. No follow up information was provided. Extracted from: Title: Office Visit Note Author: Kaya Bland MD Date: 07/21/14 Assessment/Plan Acute URI Seasonal allergies medrol dose pack Tobacco use strongly advised to quit
--- OUTSIDE RECORDS SUMMARY | 2016-07-05 18:53 | XMS REPORT | Referral Summary ---
Author Organization Unknown Address Unknown Phone Unavailable Care Team Providers Care Watch And Clock Repair Clerk Name Role Phone Hayley Jaramillo Primary Care Physician [phone] Encounter VC Date(s): 05/24/14 - 05/24/14 [facility] [place] [address] Discharge Diagnosis: Acute URI Discharge Disposition: Home or Self Care Attending Physician: Marcus Griard MD Admitting Physician: Marcus Girard MD Referring Physician: Lupillo Jaramillo MD Vital Signs Most recent to 1 oldest [Reference Range]: Temperature Tympanic 36.8 degC (05/24/14 7:27 PM) Blood Pressure 114/72 mmHg [90-138/45-84 mmHg] (05/24/14 7:27 PM) Problem List No Known Problems Allergies, Adverse Reactions, Alerts No Known Medication Allergies Medications Mucinex DM 1 tabs, Oral, q12hr, 0 Refill(s) Start Date: 01/30/14 Status: Ordered predniSONE 20 mg oral tablet 1 tabs, Oral, Daily, X 5 days, # 5 tabs, 0 Refill(s), Pharmacy: [id number], 1 tabs Oral Daily,x5 days Start Date: 05/24/14 Stop Date: 05/29/14 Status: Ordered Zithromax Z-Ismael 250 mg oral tablet 1 packets, Oral, Daily, as directed on package labeling, X 5 days, # 6 tabs, 0 Refill(s), Pharmacy: [facility] [id number], 1 packets Oral Daily,x5 days, Instr:as directed on package labeling Special Instructions: as directed on package labeling Start Date: 05/24/14 Stop Date: 05/29/14 Status: Ordered Results No data available for this section Immunizations No data available for this section Procedures No data available for this section Social History Social History Type Response Smoking Status Current every day smoker; Tobacco use per day: Pack Assessment and Plan Extracted from: Title: Ambulatory Patient Education Author: Marcus Girard MD Date: Family Medicine Upper Respiratory Infection, Adult An upper respiratory infection (URI) is also sometimes known as the common cold. The upper respiratory tract includes the nose, sinuses, throat, trachea, and bronchi. Bronchi are the airways leading to the lungs. Most people improve within 1 week, but symptoms can last up to 2 weeks. A residual cough may last even longer. CAUSES Many different viruses can infect the tissues lining the upper respiratory tract. The tissues become irritated and inflamed and often become very moist. Mucus production is also common. A cold is contagious. You can easily spread the virus to others by oral contact. This includes kissing, sharing a glass, coughing, or sneezing. Touching your mouth or nose and then touching a surface, which is then touched by another person, can also spread the virus. SYMPTOMS Symptoms typically develop 1 to 3 days after you come in contact with a cold virus. Symptoms vary from person to person. They may include: Runny nose. Sneezing. Nasal congestion. Sinus irritation. Sore throat. Loss of voice (laryngitis ). Cough. Fatigue. Muscle aches. Loss of appetite. Headache. Low-grade fever. DIAGNOSIS You might diagnose your own cold based on familiar symptoms, since most people get a cold 2 to 3 times a year. Your caregiver can confirm this based on your exam. Most importantly, your caregiver can check that your symptoms are not due to another disease such as strep throat, sinusitis, pneumonia, asthma, or epiglottitis. Blood tests, throat tests, and X-rays are not necessary to diagnose a common cold, but they may sometimes be helpful in excluding other more serious diseases. Your caregiver will decide if any further tests are required. RISKS AND COMPLICATIONS You may be at risk for a more severe case of the common cold if you smoke cigarettes, have chronic heart disease (such as heart failure) or lung disease ( such as asthma), or if you have a weakened immune system. The very young and very old are also at risk for more serious infections. Bacterial sinusitis, middle ear infections, and bacterial pneumonia can complicate the common cold. The common cold can worsen asthma and chronic obstructive pulmonary disease ( COPD). Sometimes, these complications can require emergency medical care and may be life-threatening. PREVENTION The best way to protect against getting a cold is to practice good hygiene. Avoid oral or hand contact with people with cold symptoms. Wash your hands often if contact occurs. There is no clear evidence that vitamin C, vitamin E, echinacea, or exercise reduces the chance of developing a cold. However, it is always recommended to get plenty of rest and practice good nutrition. TREATMENT Treatment is directed at relieving symptoms. There is no cure. Antibiotics are not effective, because the infection is caused by a virus, not by bacteria. Treatment may include: Increased fluid intake. Sports drinks offer valuable electrolytes, sugars, and fluids. Breathing heated mist or steam (vaporizer or shower). Eating chicken soup or other clear broths, and maintaining good nutrition. Getting plenty of rest. Using gargles or lozenges for comfort. Controlling fevers with ibuprofen or acetaminophen as directed by your caregiver. Increasing usage of your inhaler if you have asthma. Zinc gel and zinc lozenges, taken in the first 24 hours of the common cold, can shorten the duration and lessen the severity of symptoms. Pain medicines may help with fever, muscle aches, and throat pain. A variety of non-prescription medicines are available to treat congestion and runny nose. Your caregiver can make recommendations and may suggest nasal or lung inhalers for other symptoms. HOME CARE INSTRUCTIONS Only take [id number] or prescription medicines for pain, discomfort, or fever as directed by your caregiver. Use a warm mist humidifier or inhale steam from a shower to increase air moisture. This may keep secretions moist and make it easier to breathe. Drink enough water and fluids to keep your urine clear or pale yellow. Rest as needed. Return to work when your temperature has returned to normal or as your caregiver advises. You may need to stay home longer to avoid infecting others. You can also use a face mask and careful hand washing to prevent spread of the virus. SEEK MEDICAL CARE IF: After the first few days, you feel you are getting worse rather than better. You need your caregiver's advice about medicines to control symptoms. You develop chills, worsening shortness of breath, or brown or red sputum. These may be signs of pneumonia. You develop yellow or brown nasal discharge or pain in the face, especially when you bend forward. These may be signs of sinusitis. You develop a fever, swollen neck glands, pain with swallowing, or white areas in the back of your throat. These may be signs of strep throat. SEEK IMMEDIATE MEDICAL CARE IF: You have a fever. You develop severe or persistent headache, ear pain, sinus pain, or chest pain. You develop wheezing, a prolonged cough, cough up blood, or have a change in your usual mucus (if you have chronic lung disease). You develop sore muscles or a stiff neck. Document Released: 09/08/2001 Document Revised: 06/06/2012 Document Reviewed: [facility] Patient Information 2014 [employer]. No follow up information was provided. Extracted from: Title: Office Visit Note Author: Marcus Girard MD Date: 05/24/14 Assessment/Plan Acute URI Zpack and prednisone 20mg po daily for five days was given. A work/school note was offered and deferred by the patient. The patient has family members present who are agreeable with today's plan and have no additional concerns or requests. Here with GF.
--- OUTSIDE RECORDS SUMMARY | 2016-07-05 18:53 | XMS REPORT | Continuity of Care Document ---
Author Author [facility] Organization [facility] Address Unknown Phone Unavailable Support Name Relationship Address Phone SAGRARIO CARO MD Caregiver [address] [place] [address] Unavailable JOHN AWAN MD Caregiver [address] [place] [address] Unavailable OSORIO WILSON Next Of Kin [address] [place] [address] Insurance Providers Guarantor Herbert Wilson Address [address] [place] [address] Email DENIED/NO TO PT PORTAL Payer Self Pay Subscriber's Name Herbert Wilson Relationship 18 Self Chief Complaint and Reason for Visit Chief Complaint Abdominal Pain Reason for Visit Gastroenteritis Congenital malrotation of intestine Nausea and vomiting Problems Active Problems Medical Problem Onset Date Status Norovirus Unknown Acute Puncture wound of left foot Unknown Acute left ankle sprain Unknown Acute right hand contusion Unknown Acute Past Problems Medical Problem Onset Date Congenital malrotation of intestine Unknown Gastroenteritis Unknown Nausea and vomiting Unknown Medications Current Home Medications Medication Dose Units Route Directions Days Qty Instructions Start Date Hydrocodone/Acetaminophen ([place] 5-325 Tablet) 1 Each Tablet 1-2 Tab Oral Every 6 Hours as needed for Pain 20 Tablet 08/16/15 No Daily Meds 09/27/14 Ondansetron (Zofran Odt) 4 Mg Tab.rapdis 4 Mg Oral Q6h/0300,0900,1500,2100 for Nausea &/Or Vomiting 10 Tablet Oral disintegrating tablet 08/16/15 Past Home Medications Medication Directions Ordered Status Hydrocodone Bit/Acetaminophen (Lortab Elixir) 480 Ml Solution, 480 Ml Oral as needed 08/06/12 Discontinued No Medications , 02/27/13 Discontinued None , 12/02/08 Discontinued Social History Social History Problem Response Recorded Date/Time Onset Date Status Chewing Tobacco Status No 03/15/2013 6:43pm Not Applicable Not Applicable Hx Substance Use No 08/16/2015 7:57am Not Applicable Not Applicable Hx Alcohol Use No 08/16/2015 7:57am Not Applicable Not Applicable Has the pt used tobacco in the last 12 months Yes 08/02/2012 7:03am Not Applicable Not Applicable Tobacco Usage none 12/15/2014 11:00am Not Applicable Not Applicable Query Response Start Date Stop Date Smoking Status Current every day smoker Hospital Discharge Instructions No hospital discharge instructions. Plan of Care Discharge Date 08/16/15 11:52am Disposition 01 DISCHARGED HOME, SELF-CARE Condition at Discharge Improved Instructions/Education Provided DI for Food Poisoning DI for Viral Gastroenteritis -- Adult Forms Provided Return to Work/School Permit Prescriptions See Medication Section Referrals SAGRARIO CARO MD Order Date: 3 Days Address: [address] [place] [address] [place] [phone] Note: FOLLOW UP IN NEXT 3-5 DAYS FOR RE-EVALUATION AND FURTHER TREATMENT Additional Instructions/Education 1) DRINK PLENTY OF FLUIDS, ESPECIALLY WATER 2) MAY TAKE ZOFRAN 4 MG ODT EVERY 6 HOURS NEEDED FOR NAUSEA/VOMITING 3) MAY TAKE NOR[place] 5/325 ONE OR TWO EVERY 6 HOURS NEEDED FOR PAIN 4) RETURN TO ER FOR CONTINUE VOMITING WITH INABILITY TO KEEP FLUIDS DOWN, SEVERE PAIN OR FURTHER CONCERNS 5) FOLLOW UP IN NEXT 3-[address] CARO FOR RE-EVALUATION AND FURTHER TREATMENT Care Plan and Goals Physician Care Plan Problem: 1) GASTROENTERITIS VS. FOOD POISONING 2) NAUSEA AND VOMITING 3) CONGENITAL MALROTATION OF GUT Goal: Follow up with primary care provider [...] Vital Signs Vital Response Date/Time Temperature (Fahrenheit) 98.6 deg F (96.8 - 99.1) 08/16/2015 11:52am Temperature (Calculated Celsius) 37.78133 degrees C (36.0 - 37.3) 08/16/2015 11:52am Pulse Rate (adult) 52 bpm (60 - 100) 08/16/2015 11:52am Respiratory Rate 16 breaths/min (10 - 20) 08/16/2015 11:52am O2 Sat by Pulse Oximetry 100 % (90 - 100) 08/16/2015 11:52am Blood Pressure 130/96 mm Hg 08/16/2015 11:52am Height (Feet) 5 feet 08/16/2015 7:14am Height (Inches) 10.00 inches 08/16/2015 7:14am Weight (Kilograms) 61.100 kg 08/16/2015 7:14am Body Mass Index (BMI) 19.0 08/16/2015 7:14am Results Laboratory Results Test Name Result Units Flags Reference Collection Date/Time Result Date/ Time Comments White Blood Count 12.5 T/MM3 H 4.5-11.0 08/16/2015 7:30am 08/16/2015 7: 46am Red Blood Count 5.39 M/MM3 4.50-5.90 08/16/2015 7:3008/16/2015 7: 46am Hemoglobin 17.2 GM/DL 13.5-17.5 08/16/2015 7:3008/16/2015 7:46am Hematocrit 49.8 % 41-53 08/16/2015 7:3008/16/2015 7:46am Mean Corpuscular Volume 92.4 UM3 80-100 08/16/2015 7:3008/16/2015 7: 46am Mean Corpuscular Hemoglobin 31.9 UUG 26-34 08/16/2015 7:302015 7:46am Mean Corpuscular Hemoglobin Concent 34.5 GM/DL 31-37 08/16/2015 7:3008/16/2015 7:46am RDW Standard Deviation 43.7 FL 36.9-50.2 08/16/2015 7:3008/16/2015 7 :46am Platelet Count 256 T/MM3 130-400 08/16/2015 7:3008/16/2015 7:46am Mean Platelet Volume 9.6 UM3 9.4-12.4 08/16/2015 7:3008/16/2015 7: 46am Neutrophils (%) (Auto) 54.1 % 33-66 08/16/2015 7:08/16/2015 7: 46am Lymphocytes (%) (Auto) 35.0 % 23-45 08/16/2015 7:08/16/2015 7: 46am Monocytes (%) (Auto) 6.6 % 0-9.0 08/16/2015 7:08/16/2015 7:46am Eosinophils (%) (Auto) 3.8 % 0-4 08/16/2015 7:08/16/2015 7:46am Basophils (%) (Auto) 0.3 % 0-2 08/16/2015 7:08/16/2015 7:46am Immature Granulocyte % (Auto) 0.2 % 0.0-0.5 08/16/2015 7:2015 7:46am Absolute Neutrophils (auto) 6.8 T/MM3 1.8-7.7 08/16/2015 7:2015 7:46am Absolute Lymphocytes (auto) 4.4 T/MM3 1-4.8 08/16/2015 7:2015 7:46am Absolute Monocytes (auto) 0.8 T/MM3 0-0.8 08/16/2015 7:08/16/2015 7:46am Absolute Eosinophils (auto) 0.5 T/MM3 0-0.5 08/16/2015 7:2015 7:46am Absolute Basophils (auto) 0.0 T/MM3 0-0.2 08/16/2015 7:08/16/2015 7:46am Absolute Immature Granulocyte (auto 0.02 T/MM3 0.00-0.03 08/16/2015 7: 08/16/2015 7:46am Icterus Index < 2 0-7 08/16/2015 7:08/16/2015 7:54am Chemistry Specimen Hemolysis 37 H 0-25 08/16/2015 7:08/16/2015 7: 54am 26-70: Specimen Exhibited Slight Hemolysis - can falsely elevate K (Potassium) and Urine Protein. Turbidity < 20 0-20 08/16/2015 7:08/16/2015 7:54am Sodium Level 140 MEQ/L 134-144 08/16/2015 7:3008/16/2015 7:54am Potassium Level 4.0 MEQ/L 3.6-5 08/16/2015 7:3008/16/2015 7:54am Chloride Level 103 MEQ/L 98-107 08/16/2015 7:3008/16/2015 7:54am Carbon Dioxide Level 27 MEQ/L -08/16/2015 7:3008/16/2015 7: 54am Anion Gap 10 MEQ/L -08/16/2015 7:3008/16/2015 7:54am Blood Urea Nitrogen 16.0 MG/DL -08/16/2015 7:3008/16/2015 7: 54am Creatinine 0.8 MG/DL 0.8-1.5 08/16/2015 7:3008/16/2015 7:54am BUN/Creatinine Ratio 20 RATIO 6-08/16/2015 7:3008/16/2015 7:54am Glomerular Filtration Rate Calc 126 08/16/2015 7:3008/16/2015 7: 54am Glucose Level 96 MG/DL 75-110 08/16/2015 7:3008/16/2015 7:54am Calculated Osmolality 270 MOSM/KG 261-280 08/16/2015 7:08/16/2015 7:54am Calcium Level 9.7 MG/DL 8.4-10.2 08/16/2015 7:3008/16/2015 7:54am Total Bilirubin 0.50 MG/DL 0.20-1.30 08/16/2015 7:3008/16/2015 7: 54am Alkaline Phosphatase 76 U/L 70-260 08/16/2015 7:3008/16/2015 7:54am Total Protein 7.3 G/DL 6.3-8.2 08/16/2015 7:3008/16/2015 7:54am Albumin 4.7 G/DL 3.5-5.0 08/16/2015 7:3008/16/2015 7:54am Globulin 2.6 G/DL 2.4-3.6 08/16/2015 7:3008/16/2015 7:54am Albumin/Globulin Ratio 1.8 RATIO 1.1-2.2 08/16/2015 7:30am 08/16/2015 7 :54am Aspartate Amino Transf (AST/SGOT) 17 U/L 17-59 08/16/2015 7:30am 2015 7:54am Alanine Aminotransferase (ALT/SGPT) 15 U/L L 21-72 08/16/2015 7:30am 7:54am Lipase 177 U/L 23-300 08/16/2015 7:30am 08/16/2015 7:54am Urine Collection Type CLEANCATCH-MIDSTREAM 08/16/2015 8:32am 2015 8:41am Urine Color YELLOW YELLOW 08/16/2015 8:32am 08/16/2015 8:41am Urine Turbidity CLOUDY CLEAR 08/16/2015 8:32am 08/16/2015 8:41am Urine Specific White 1.020 1.015-1.025 08/16/2015 8:32am 2015 8:41am Urine pH 7.0 5.0-8.0 08/16/2015 8:32am 08/16/2015 8:41am Urine Leukocyte Esterase NEGATIVE NEGATIVE 08/16/2015 8:32am 2015 8:41am Urine Nitrite NEGATIVE NEGATIVE 08/16/2015 8:32am 08/16/2015 8:41am Urine Protein NEGATIVE NEGATIVE 08/16/2015 8:32am 08/16/2015 8:41am Urine Glucose (UA) NEGATIVE NEGATIVE 08/16/2015 8:32am 08/16/2015 8: 41am Urine Ketones NEGATIVE NEGATIVE 08/16/2015 8:32am 08/16/2015 8:41am Urine Urobilinogen 0.2 EU/DL NORMAL 08/16/2015 8:32am 08/16/2015 8: 41am Urine Bilirubin NEGATIVE NEGATIVE 08/16/2015 8:32am 08/16/2015 8: 41am Urine Blood NEGATIVE NEGATIVE 08/16/2015 8:32am 08/16/2015 8:41am Urinalysis Comment MICROSCOPIC NOT IND. 08/16/2015 8:32am 2015 8:41am Name: HERBERT WILSON Luann Unit #: [id number] : 1995 Sex: M Admit Date: Loc / Svc: ED Discharge Date: DIAGNOSTIC IMAGING REPORT Report #: [id number] [facility] DUANE [place] Indication: ITS.REASON: SEVERE ABDOMINAL PAIN, NAUSEA AND VOMITING PROCEDURE: CT ABD/PELVIS W/CONTRAST ONLY: Encounter: Initial Comparison: Acute abdomen series from today Technique: Axial CT images were performed through the abdomen and pelvis after the administration of intravenous contrast. Coronal and sagittal two-dimensional reformats. Contrast: Omnipaque 300 89 mL Findings: The lung bases are clear. The liver shows mild periportal edema likely related to hydration status. No liver masses or bile duct dilatation. The gallbladder is normal. The spleen, pancreas and adrenal glands are normal. The kidneys are normal. No abdominal or pelvic lymphadenopathy although evaluation is somewhat limited given the lack of intra-abdominal fat. Bladder is grossly normal. Prostate and rectum are unremarkable. No free fluid. There is complete malrotation present with the small bowel confined to the right abdomen and colon in the left half of the abdomen. There is abnormal relationship of the SMA and SMV with the SMA to the right of the proximal SMV. I do not definitely identify the appendix but there are no obvious inflammatory changes seen in the region of the cecum to suggest an acute appendicitis. The cecum is in the deep pelvis. There is a fluid-filled segment of distal small bowel in the pelvis which may be the terminal ileum. Impression: 1. Complete malrotation. No definite CT evidence of small bowel ischemia or acute mesenteric volvulus. Surgical consultation is still recommended however given the risk for the development of these entities. 2. Occasional fluid-filled distal small bowel loops could represent a gastroenteritis. . Procedures No known history of procedures. Encounters Encounter Location Arrival/Admit Date Discharge/Depart Date Attending Provider Departed Emergency Room [facility] 08/16/15 7:02am 08/16/15 11: 52am JOHN AWAN MD Recent Diagnosis
[2016-07-05 19:07] VITALS: Ht 177.8 cm; Wt 72.7 kg
--- NOTE | 2016-07-05 19:13 | ERPDOC ---
Departure Disposition Decision Date: Jul 05, 2016 Disposition Decision Time: 20:18 Disposition: 01 DISCHARGED HOME, SELF-CARE Impression Impression Impression: Primary Impression: left ankle sprain Condition: Improved Seen By: Mid-level only Referrals: SAGRARIO CARO MD (Family) Patient Instructions: Ankle Sprain (ED) Problems/Meds/Labs Reviewed?: Yes Medications reviewed and manag: Yes Additional Instructions: Wear air cast as directed for 2-3 weeks. Follow with your PCP in one week for reevaluation. Elevate your ankle as needed to help reduce swelling. Use ice for the next 48 hours to affected site of ankle to help reduce swelling. You may take 600 mg of ibuprofen every 6-8 hours as needed for pain with food. Follow treatment plan. Avoid any activity that may exacerbate pain. Follow up care ordered?: Yes Mental Status: Alert, Oriented HPI - Lower Extremity General Chief Complaint: Lower Extremity Injury Stated Complaint: ANKLE PAIN Time Seen by Provider: 19:11 Source: patient HPI - Lower Extremity Initial Comments 20 YO M presents to ED with report of left lateral ankle pain. Patient says he was skate boarding and sit down with left ankle under him, twisting ankle. Painful to bear weight. Has iced ankle but has not taken anything for pain. Duration: 1-3 hrs Pain/Severity Scale: Now: 4/10, Worst: 7/10 Pain/Injury Location: left ankle Method of Injury: twisted Quality: aching, throbbing Allergies: Coded Allergies: No Known Drug Allergies (Unverified Allergy, Unknown, 07/05/16) Past History Past Medical History Metabolic: DENIES: diabetes Cardiac: DENIES: angina Hx Echocardiogram: No Respiratory: asthma GI: DENIES: ulcers Male: DENIES: renal insufficiency Neurological: DENIES: seizures Musculoskeletal: DENIES: rheumatoid arthritis Psychological: DENIES: depression Surgical History General: tonsils Joint: hand, other Family History Family PMH: FOUND: other (noncontributory) Vaccines Hx Influenza Vaccination: No Hx Pneumococcal Vaccination: No Hx Tetanus, Diptheria, Pertuss: Yes (2012) Social History Sexuality: female partner Review of Systems Constitutional Constitutional: DENIES: chills, dizziness, fever, weakness Eyes General: DENIES: erythema, exudate Lids/Accessories: DENIES: erythema, swelling Vision: DENIES: blurring ENMT Ears: DENIES: pain Hearing: DENIES: hearing loss Sinuses: DENIES: congestion, rhinorrhea Mouth/Throat: DENIES: sore throat Cardiovascular Cardiac: DENIES: chest pain, murmur Rhythm/Rate: DENIES: palpitations Pulmonary Respiratory: DENIES: cough, dyspnea GI Upper Abdomen: DENIES: nausea, pain, vomiting Lower Abdomen: DENIES: diarrhea, pain General: DENIES: dysuria, pain Musculoskeletal General: joint pain, see HPI, tenderness Integumentary Skin: DENIES: color change, itching, rash Neurological General: DENIES: ataxia, change in strength, numbness, paralysis/paresis, weakness Psychiatric Psychiatric: DENIES: anxiety, depression, nervousness Physical Exam General General Nourishment: well nourished, well developed, no acute distress, adult General Body Habitus: disheveled Vitals and Pain First Documented Vital Signs Date Time Temp Pulse Resp B/P Pulse Ox O2 Delivery O2 Flow Rate FiO2 07/05/16 19:07 98.1 76 16 138/71 100 Room Air Weight: Kilograms: Height (feet): 5 Height (inches): 7.00 Triage Pain Scale: Eyes (brief) Eyes Brief: found: EOMI, PERRL ENMT (brief) ENMT Brief: NOT FOUND: nasal exudate, nasal swelling Neck (brief) Neck: FOUND: trachea midline Respiratory (brief) Respiratory: FOUND: clear all [place], equal bilaterally, symmetrical Cardiovascular (brief) Cardiac: FOUND: regular rate, regular rhythm Musculoskeletal Joint : Side: Left Joint: knee Joint Findings: FOUND: no abnormalities Fastrak Foot/Ankle Foot/Ankle : Leg: Left Leg: NOT FOUND: atrophy, contusion, deformity, discoloration, edema, numbness, swelling, tender, weakness Ankle: decreased ROM (due to pain), swelling (mild over lateral malleolus), tender lat. malleolus, NOT FOUND: achilles tendon insertion, anterior drawer sign, deformity, ecchymosis, foot drop, numbness, tender lat. foot, tender med. malleolus, tender mid foot, weakness Foot: NOT FOUND: atrophy, deformity, discoloration, numbness, swelling, tender 1st MTP joint, tender plantar fascia Toes: cap refill <2 sec ea toe, other (good sensation to distal toes), NOT FOUND: decreased ROM, deformity, ecchymosis, erythema, nail avulsion, subungual hematoma Dorsalis Pedis Pulse: 2+ Integumentary (brief) Integumentary Brief: FOUND: dry, pink, warm Neurologic (brief) Neurological Brief: FOUND: motor-no gross deficits, sensory-no gross deficits Psychiatric (brief) Psychiatric Brief: FOUND: alert, normal affect, oriented Differential Diagnoses Considering: Contusion, Dislocation, Fracture, Sprain, Strain Progress Results/Orders Orders Procedure Category Date Status Time Ibuprofen (Motrin) PHA 07/05/16 Complete 19:30 Ankle Left 3 View RAD 07/05/16 Resulted Premade Splint EDM 07/05/16 Transmitted 20:16 Medications Current ED Medications Ibuprofen (Motrin) 600 mg O ONCE PO Last administered on 07/05/16t 19:32; Start 07/05/16 at 19:30; Stop 07/05/16 at 19:31; Status DC Progress Progress I discussed x-ray findings with patient. Treatment plan (wearing air cast), follow up with PCP and return precautions which patient verbalized understanding. Xray Xray : Xray: AILYN Mensah APRN Jul 05, 2016 19:13
--- NOTE | 2016-07-05 19:15 | NUR ---
SIXTO NICK APRN AT BEDSIDE.
[2016-07-05] MEDS ORDERED: IBUPROFEN 600 MG TABLET PO ONE (19:30)
--- NOTE | 2016-07-05 19:45 | NUR ---
XRY PORTABLE AT BEDSIDE.
--- NOTE | 2016-07-05 20:13 | NUR ---
SIXTO NICK APRN AT BEDSIDE.
--- OUTSIDE RECORDS SUMMARY | 2016-07-05 20:14 | XMS REPORT | Continuity of Care Document ---
Author Author [facility] Organization [facility] Address Unknown Phone Unavailable Allergies Active Description Code Type Severity Reaction Onset Reported/Identified Relationship to Patient Clinical Status Yes No Known Medication Allergies NKMA N/A N/A 01/30/2014 Medications Problems Date Dx Coded Attending Type Code Diagnosis Diagnosed By 04/07/2016 OMAR LYNCH [id number] Nicotine dependence, cigarettes, uncomplicated 04/07/2016 OMAR LYNCH H6692 Otitis media, unspecified, left ear 04/07/2016 OMAR LYNCH J029 Acute pharyngitis, unspecified 04/07/2016 OMAR LYNCH R05 Cough Procedures Results Encounters ACCT No. Visit Date/Time Discharge Status Pt. Type Provider Facility Loc./Unit Complaint [id number] 05/08/2013 18:13:00 05/08/2013 23 :59:59 CLS Outpatient
--- OUTSIDE RECORDS SUMMARY | 2016-07-05 20:15 | XMS REPORT ---
Author Author [facility] Organization Unknown Address Unknown Phone Unavailable Care Team Providers Care Technical Operations Vice President Name Role Phone PP Unavailable Reason For [...]
[2016-07-05 20:40] VITALS: BP 116/61; PULSE 58; RESP 12; TEMP 98.2; O2SAT 100
--- NOTE | 2016-07-05 20:40 | NUR ---
DEPART PT TAKEN TO PRIVATE CAR [facility] BY THIS RN.
--- NOTE | 2016-07-05 21:16 | DI ---
Indication: ITS.REASON: TTP over lateral malleolus PROCEDURE: ANKLE LEFT 3 VIEW: Encounter: Initial Comparison: March 15, 2013 Findings: There is no acute fracture, dislocation or malalignment identified. Impression: No acute osseous abnormality. .
== END 2016-07-05 20:40 | disposition home or self-care (01) ==
LOC: ED 18:49
DX: S93.402A Sprain of unspecified ligament of left ankle, initial encounter (principal); X50.1XXA Overexertion from prolonged static or awkward postures, initial encounter; Y93.51 Activity, roller skating (inline) and skateboarding; Y92.830 Public park as the place of occurrence of the external cause; Y99.8 Other external cause status